=== PATIENT | female | born 1990 ===

== ENCOUNTER 2017-06-07 20:20 | Emergency (ER) | payer OTHER ==
[2017-06-07] MEDS ORDERED: NS 0.9% 1000 ML* 1,000 ML IV ONE (22:21)
[2017-06-07 22:47] LABS: Hematocrit 40 % (35-47); Hemoglobin 13.7 g/dl (12.0-16.0); Mean Corpuscular HGB Conc 34 g/dl (31-36); Mean Corpuscular Hemoglobin 29 pg (27-31); Mean Corpuscular Volume 83 fL (80-97); Mean Platelet Volume 8 um3 (7.4-10.4); Red Blood Count 4.79 10^6/ul (4.0-5.4); Red Cell Distribution Width 14 % (10.5-15); White Blood Count 6.2 10^3/ul (3.5-10.8)
[2017-06-07 22:58] LABS: Urine Bacteria Absent (Absent); Urine Bilirubin Negative (Negative); Urine Glucose Negative (Negative); Urine Nitrite Negative (Negative)
[2017-06-07 23:03] LABS: ALT 19 U/L (7-52); AST 17 U/L (13-39); Albumin 4.7 g/dL (3.2-5.2); Alkaline Phosphatase 60 U/L (34-104); Anion Gap 5 mmol/L (2-11); Blood Urea Nitrogen 8 mg/dL (6-24); CO2 Carbon Dioxide 28 mmol/L (22-32); Calcium 9.7 mg/dL (8.6-10.3); Chloride 102 mmol/L (101-111); EGFR African American 191.8 (>60); EGFR Non-African American 149.1 (>60); Globulin 3.7 g/dL (2-4); Glucose 83 mg/dL (70-100); Lipase 39 U/L (11.0-82.0); Potassium 3.7 mmol/L (3.5-5.0); Sodium 135 mmol/L (133-145); Total Protein 8.4 g/dL (6.4-8.9)
[2017-06-08] MEDS ORDERED: Iohexol 300* (CONTRAST) 10 ML SDV IV ONE (00:05)
[2017-06-08] MEDS ORDERED: Levofloxacin TAB* 500 MG PO ONE (01:33)
[2017-06-08] MEDS ORDERED: Ibuprofen TAB* 600 MG PO ONE (01:33)
--- NOTE | 2017-06-08 01:46 | ED ---
Carmen Hodgson Thomas, scribed for Lizandro Kee on 06/07/17 at 2204 . Abdominal Pain/Female - HPI Summary HPI Summary: The pt is a 26 y/o M presenting to the ED c/o abd pain and L flank pain that began 3 days ago. The pt rates the pain 7/10. The pain is aggravated and alleviated by nothing. The patient has treated the pain with nothing [employer]. Pt additionally c/o nausea, bloating. Pt denies fever, vaginal discharge, vaginal bleeding, dysuria, and hematuria. PMHx: thrombocytopenia. PSHx: . She is accompanied by her and child. SHx: no smoking, no alcohol use, no illicit drug use. - History of Current Complaint Chief Complaint: EDAbdPain Stated Complaint: ABD PAIN/NAUSEA Time Seen by Provider: 06/07/17 21:44 Hx Obtained From: Patient, Family/Shipping Packer - , child in room Onset/Duration: Lasting Days - 3, Still Present Timing: Constant Pain Intensity: 7 Pain Scale Used: 0-10 Numeric Location: Flank - L Aggravating Factor(s): Nothing Alleviating Factor(s): Nothing Associated Signs and Symptoms: Positive: Nausea, Other: - POS: bloating; NEG: dysuria, hematuria. Negative: Fever, Vaginal Bleeding, Vaginal Discharge Allergies/Adverse Reactions: Allergies Allergy/AdvReac Type Severity Reaction Status Date / Time No Known Allergies Allergy Verified 06/07/17 20:30 PMH/Surg Hx/FS Hx/Imm Hx Previously Healthy: No Cardiovascular History: Reports: Other Cardiovascular Problems/Disorders - Hx thrombocytopenia Respiratory History: Denies: Hx Chronic Obstructive Pulmonary Disease (COPD) - Surgical History Surgery Procedure, Year, and Place: Infectious Disease History: No Infectious Disease History: Denies: Traveled Outside the [place] in Last 30 Days - Family History Known Family History: Positive: Hypertension, Diabetes, Other - POS: HLD - Social History Alcohol Use: None Substance Use Type: Reports: None Smoking Status (MU): Never Smoked Tobacco Review of Systems Negative: Fever Positive: Abdominal Pain, Nausea, Other - POS: bloating Positive: flank pain - L. Negative: dysuria, discharge, hematuria, other - NEG : vaginal bleeding All Other Systems Reviewed And Are Negative: Yes Physical Exam Triage Information Reviewed: Yes Vital Signs On Initial Exam: Initial Vitals Temp Pulse Resp BP Pulse Ox 98 F 85 16 116/88 100 06/07/17 20:31 06/07/17 20:31 06/07/17 20:31 06/07/17 20:31 06/07/17 20:31 Vital Signs Reviewed: Yes Appearance: Positive: Well-Appearing, No Pain Distress Skin: Positive: Warm, Skin Color Reflects Adequate Perfusion, Dry Head/Face: Positive: Normal Head/Face Inspection Eyes: Positive: EOMI, REGAN ENT: Positive: Normal ENT inspection Neck: Positive: Supple, Nontender Respiratory/Lung Sounds: Positive: Clear to Auscultation, Breath Sounds Present Cardiovascular: Positive: RRR, Pulses are Symmetrical in both Upper and Lower Extremities Abdomen Description: Positive: Soft, Other: - She is tender to her L flank, LUQ , and LLQ Bowel Sounds: Positive: Present Musculoskeletal: Positive: Normal, Strength/ROM Intact Neurological: Positive: Normal, Sensory/Motor Intact, Alert, Oriented to Person Place, Time Diagnostics - Vital Signs Vital Signs Temp Pulse Resp BP Pulse Ox 06/07/17 20:31 98 F 85 16 116/88 100 - Laboratory Result Diagrams: 06/07/17 22:30 06/07/17 22:30 Lab Statement: Any lab studies that have been ordered have been reviewed, and results considered in the medical decision making process. - CT CT Abd/Pel CT Interpretation: No Acute Changes - Small involuting left ovarian cyst without free fluid. No definite acute pathology. ED physician has reviewed this report and agrees. CT Interpretation Completed By: Radiologist - Additional Comments Diagnostic Additional Comments: Gallbladder US. Interpreted by radiologist. Impression: normal exam. Abdominal Pain Fem Course/Dx - Course Course Of Treatment: Patient c/o abd pain and flank pain for three days. IV Fluids were given. US Gallbladder normal. CT Abd/Pel shows small involuting left ovarian cyst without free fluid. Labs were obtained. UA shows infection. Will discharge with Levaquin and Ibuprofen. She is diagnosed with abd pain and a UTI. She will follow up with PCP in 3 days. - Diagnoses Provider Diagnoses: Abdominal pain, UTI (urinary tract infection) Discharge - Discharge Plan Condition: Stable Disposition: HOME Prescriptions: Ibuprofen TAB* [Motrin TAB* 600 MG] 600 mg PO Q8H PRN #20 tab MDD 3 PRN Reason: Pain Levofloxacin TAB* [Levaquin TAB*] 500 mg PO DAILY #5 tab Patient Education Materials: Abdominal Pain (ED), Urinary Tract Infection in Women (ED) Referrals: [facility] [place] PHYSICIAN REFERRAL [Outside] - 3 Days Additional Instructions: Use the physician referral service to follow up with a primary care physician in three days. The documentation as recorded by the Carmen grant Thomas accurately reflects the service I personally performed and the decisions made by , Lizandro Kee.
[2017-06-08 01:55] VITALS: BP 125/81
--- NOTE | 2017-06-08 07:42 | RAD ---
HISTORY: Abdominal pain COMPARISONS: None TECHNIQUE: Multiple transverse and longitudinal ultrasound images were obtained of the right upper quadrant. FINDINGS: LIVER: The liver is normal in dimensions and echogenicity. Normal hepatic and portal venous blood flow is duplicated with color flow imaging. There is no gross intrahepatic biliary duct dilatation. GALLBLADDER AND EXTRAHEPATIC BILIARY DUCT: The gallbladder is normal in appearance without intraluminal stones or other soft tissue masses. There is no pericholecystic fluid or gallbladder wall thickening. The common bile duct measures a maximum diameter of 5 mm. PANCREAS: The portions of the pancreas not obscured by bowel gas are normal in appearance. RIGHT KIDNEY: The right kidney is normal in size, morphology and echogenicity. AORTA AND IVC: The visualized portions are normal in appearance and not pathologically dilated. IMPRESSION: Normal ultrasound of the right upper quadrant.
--- NOTE | 2017-06-08 07:55 | RAD ---
INDICATION: Abdominal pain, evaluate for appendicitis. COMPARISON: Comparison is made with a prior right upper quadrant ultrasound from June 07, 2017. TECHNIQUE: A CT scan of the abdomen and pelvis was performed with intravenous and oral contrast following intravenous injection of 75 ml of Omnipaque 300 nonionic contrast. Contiguous axial sections were obtained from the lung bases through the symphysis pubis. Images were reconstructed in the coronal and sagittal planes. FINDINGS: The lung bases are clear. No pleural effusion is present. The liver and spleen are within normal limits in size without significant focal abnormality. No calcified gallstones are seen. The pancreas appears to be within normal limits in size. The kidneys and adrenal glands are normal in size. No hydronephrosis is seen. No significant focal renal abnormality is seen. The aorta is normal in caliber and demonstrates homogeneous contrast opacification. No significant enlarged retroperitoneal lymph nodes are seen. The stomach, small and large bowel appear nondistended. The appendix is within normal limits. There is no evidence for diverticulitis or colitis. The uterus is retroverted and normal in size. There is a small 1.7 cm involuting left follicular cyst. No free intraperitoneal air or fluid is seen. There is a mild lumbar scoliosis toward the left side. No significant focal osseous abnormality is seen. IMPRESSION: SMALL INVOLUTING LEFT FOLLICULAR CYST, OTHERWISE UNREMARKABLE STUDY.
== END 2017-06-08 01:59 | disposition home or self-care (01) ==
LOC: ED 20:20
DX: N39.0 Urinary tract infection, site not specified (principal); R11.0 Nausea; R10.84 Generalized abdominal pain
CPT/HCPCS: 36415; 74177; 76705; 80053; 81003; 81015; 83690; 84484; 84702; 85025; 85610; 85730; 87086; 99283; A9270-GY; Q9967